=== PATIENT | female | born 2000 | race American Indian/Alaskan Native ===

== ENCOUNTER 2018-11-19 14:55 | Outpatient (CLI) | payer OTHER | END 2018-11-19 15:43 | disposition home or self-care (01) | LOC: TRG 14:55 | PROVIDERS: ATTEND Obstetrics & Gynecology | DX: O26.893 Other specified pregnancy related conditions, third trimester (principal); O36.0130 Maternal care for anti-D [Rh] antibodies, third trimester, not applicable or unspecified; Z67.41 Type O blood, Rh negative; Z3A.28 28 weeks gestation of pregnancy | CPT/HCPCS: 86850; 86900; 86901; 96372; J2790 ==

== ENCOUNTER 2018-11-27 11:37 | Outpatient (CLI) | payer OTHER ==
[2018-11-27 12:35] VITALS: BP 113/72
[2018-11-27] MEDS ORDERED: LACTATED RINGERS 500 ML IV ONE (12:52)
[2018-11-27 15:14] LABS: Bacteria,Urine 1+ /HPF (Negative); Mucus,Urine 3+ /HPF
[2018-11-27 15:16] LABS: Bilirubin,Urine NEG (Negative); Blood,Urine NEG (Negative); Color,Urine Yellow (Yellow); Urobilinogen,Urine < 2.0 mg/dL (<2.0)
== END 2018-11-27 15:00 | disposition home or self-care (01) ==
LOC: TRG 11:37
PROVIDERS: ATTEND Obstetrics & Gynecology
DX: O26.893 Other specified pregnancy related conditions, third trimester (principal); R42 Dizziness and giddiness; Z3A.29 29 weeks gestation of pregnancy
CPT/HCPCS: 59025; 81001; J7120; 96360